=== PATIENT | female | born 1950 | race Caucasian/White ===

== ENCOUNTER 2021-07-02 10:55 | Emergency (ER) | payer MEDICARE, SELFPAY ==
[2021-07-02 11:14] VITALS: BP 139/76; PULSE 78; RESP 18; TEMP 37.2; O2SAT 98
--- NOTE | 2021-07-02 11:34 | ED.FEMALEGU ---
HPI - Female Genitourinary General Chief complaint: Urogenital-Female Stated complaint: poss UTI Time Seen by Provider: 07/02/21 10:58 Source: patient Mode of arrival: ambulatory Limitations: no limitations History of Present Illness HPI Narrative: 71-year-old female presents to [facility] with complaints of urinary urgency, frequency, pain and burning since last night. Patient does report history of urinary tract infections. Patient has not tried taking any [id number] medications for her symptoms. Patient denies fever, bodies, chills, nausea, vomiting, diarrhea, flank pain or abdominal pains. Patient denies vaginal discharge or concern for STDs. MD elicited complaint: dysuria and UTI Onset (ago): hour(s) (12) Vaginal discharge: none Vaginal bleeding: none Urinary symptoms: Dysuria, Urgency and Frequency Exacerbating factors: none Relieving factors: none Associated symptoms: denies other symptoms Related Data Home Medications Medication Instructions Recorded Confirmed citalopram 10 mg PO DAILY 07/02/21 07/02/21 trazodone 25 mg PO HS 07/02/21 07/02/21 Allergies Allergy/AdvReac Type Severity Reaction Status Date / Time acetaminophen [From Vicodin] AdvReac Abdominal Verified 07/02/21 11:18 Pain hydrocodone [From Vicodin] AdvReac Abdominal Verified 07/02/21 11:18 Pain Review of Systems Constitutional: Constitutional: Denies chills and Denies fatigue Cardiovascular: Cardiovascular: Denies chest pain and Denies radiating jaw, neck or arm pain Respiratory: Respiratory: Denies cough and Denies dyspnea Gastrointestinal: Gastrointestinal: Denies abdominal pain, Denies diarrhea, Denies nausea and Denies vomiting Genitourinary: Genitourinary: Denies abnormal vaginal bleeding, Reports nocturia, Reports dysuria, Denies flank pain and Denies urinary incontinence Integumentary/Breasts: Skin/Breast: Denies rash PMFSH Family History Family History (Updated 07/02/21 @ 11:36 by Qian Akins APRN) Mother Diabetes mellitus Father Heart disease Social History Social History (Updated 07/02/21 @ 11:36 by Qian Akins APRN) Smoking status: Current every day smoker Comments At time of signature, I agree with nursing past medical, surgical, social and family history. There is no relevant family history pertinent to the presenting complaint. Exam Const: General: healthy appearing and no acute distress Orientation/consciousness: patient oriented x3 Neck: Neck: normal visual inspection Resp: Effort & Inspection: normal respiratory effort, not labored and not tachypneic Auscultation: clear to auscultation bilaterally Cardio: Rate: regular rate Rhythm: regular rhythm GI: Inspection: non-distended GI Palp: Yes Soft to palpation and No Tenderness to palpation present (GI) Auscultation: normal bowel sounds : General: Yes bladder normal to palpation and Yes no CVA tenderness Back/Spine/Pelvis: Back: no CVA tenderness Skin: General skin exam: normal color Rashes: no rashes Neuro: General: patient oriented x3 and moves all extremities Psych: Mental Status: mental status grossly normal Affect: normal affect Attitude: cooperative Course Course Emergency Course: Urinalysis results discussed with patient. Patient agrees to take antibiotic as prescribed. Urine culture obtained and sent to lab. Patient agrees to proceed to the emergency room if symptoms worsen Vital Signs Vital signs: Vital Signs Temperature 37.2 C 07/02/21 11:14 Pulse Rate 78 07/02/21 11:14 Respiratory Rate 18 07/02/21 11:14 Blood Pressure 139/76 07/02/21 11:14 Pulse Oximetry 98 07/02/21 11:14 Temperature 37.2 C 07/02/21 11:14 Pulse Rate 78 07/02/21 11:14 Respiratory Rate 18 07/02/21 11:14 Blood Pressure 139/76 07/02/21 11:14 Pulse Oximetry 98 07/02/21 11:14 MDM - Female Genitourinary Differential Diagnosis Differential diagnosis: Likely bacterial vaginosis, vaginitis a
== END 2021-07-02 11:44 | disposition home or self-care (01) ==
PROVIDERS: Emergency Provider Nurse Practitioner Family; PCP Internal Medicine
DX: N30.00 Acute cystitis without hematuria (principal); F32.9 Major depressive disorder, single episode, unspecified
CPT/HCPCS: 81003; 87077; 87086; 87186; 99213; G0463